=== PATIENT | male | born 1965 | race Caucasian/White ===

== ENCOUNTER 2019-11-05 09:13 | Day surgery (SDC) | payer BC, OTHER ==
[~2019-11-05] VITALS: Ht 174 cm; Wt 60.0 kg
[2019-11-05 09:20] VITALS: BP 125/75
[2019-11-05] MEDS ORDERED: ELIQUIS PO (09:26)
[2019-11-05] MEDS ORDERED: DULO60CA45 PO (09:27)
[2019-11-05] MEDS ORDERED: PREG150C PO (09:27)
[2019-11-05] MEDS ORDERED: CYCL-1 PO (09:28)
[2019-11-05] MEDS ORDERED: ROSU10TA2 PO (09:29)
[2019-11-05] MEDS ORDERED: MOME13HF INH (09:30)
[2019-11-05] MEDS ORDERED: FLO0.4C PO (09:30)
[2019-11-05] MEDS ORDERED: OMEP20TA23 PO (09:31)
[2019-11-05] MEDS ORDERED: CREON PO (09:34)
[2019-11-05] MEDS ORDERED: NORT50CA5 PO (09:35)
[2019-11-05] MEDS ORDERED: APIX5TAB3 PO (09:36)
[2019-11-05] MEDS ORDERED: LIDOcaine Viscous 15ml cup ONE (09:44)
[2019-11-05] MEDS ORDERED: fentaNYL/PF 50MCG/1 ML 2ML syringe ONE (09:44)
[2019-11-05] MEDS ORDERED: MIDAZolam 5mg/5ml vial ONE (09:44)
[2019-11-05 10:51] VITALS: BP 115/69
[2019-11-05 11:01] VITALS: BP 110/68
[2019-11-05 11:16] VITALS: BP 116/67
[2019-11-05 11:21] VITALS: BP 111/69
[2019-11-05 11:31] VITALS: BP 124/69
== END 2019-11-05 12:43 | disposition home or self-care (01) ==
LOC: GI LAB 09:13
PROVIDERS: ATTEND Internal Medicine Gastroenterology
DX: K22.70 Barrett's esophagus without dysplasia (principal); B37.81 Candidal esophagitis; Z79.899 Other long term (current) drug therapy
CPT/HCPCS: 43239; G0500; J2250; J3010; J7040; 88305; 88312; 99152; A4620

== ENCOUNTER 2019-11-18 22:16 | Emergency (ER) | payer MEDICARE, OTHER ==
[~2019-11-18] VITALS: Ht 172.7 cm; Wt 58.2 kg
[~2019-11-18 22:16] MED LIST: APIX5TAB3 PO; CREON PO; CYCL-1 PO; DULO60CA45 PO; FLO0.4C PO; MOME13HF INH; NORT50CA5 PO; OMEP20TA23 PO; PREG150C PO; ROSU10TA2 PO
--- NOTE | 2019-11-18 23:00 | NUR ---
TRAUMA CLEARED BY MIRTA RTISTAN
[2019-11-18] MEDS ORDERED: HYDROcodone/acetaminophen 10/325mg tab PO ONE (23:05)
[2019-11-18 23:42] VITALS: BP 115/85
== END 2019-11-18 23:44 | disposition home or self-care (01) ==
LOC: ER 22:17
DX: S09.90XA Unspecified injury of head, initial encounter (principal); R11.2 Nausea with vomiting, unspecified; M54.5 Low back pain; G89.29 Other chronic pain; F17.200 Nicotine dependence, unspecified, uncomplicated; Z98.890 Other specified postprocedural states; Z79.01 Long term (current) use of anticoagulants; Z79.899 Other long term (current) drug therapy; W18.31XA Fall on same level due to stepping on an object, initial encounter; Y93.89 Activity, other specified; Y92.89 Other specified places as the place of occurrence of the external cause; Y99.8 Other external cause status
CPT/HCPCS: 70450; 99284

== ENCOUNTER 2019-11-20 21:38 | Emergency (ER) | payer MEDICARE, MEDICAID ==
[~2019-11-20] VITALS: Ht 170.2 cm; Wt 56.8 kg
--- NOTE | 2019-11-20 22:04 | NUR ---
SPOKE WITH MIRTA ISSA REGARDING PT TAKING THINNERS. PER LUIS MANUEL, NOT NECESSARY TO START TRAUMA PROTOCOL AND ORDER ELBOW XRAY. ORDERS PLACED
[2019-11-20] MEDS ORDERED: HYDR-3965 PO (22:57)
[2019-11-20] MEDS ORDERED: HYDROcodone/acetaminophen 10/325mg tab PO ONE (23:00)
--- NOTE | 2019-11-20 23:03 | NUR ---
Edward, the orthopaedic nurse, is coming in to place long arm splint
--- NOTE | 2019-11-20 23:35 | NUR ---
orthopedic shoe maker at bedside
[2019-11-20] MEDS ORDERED: fentaNYL/PF 50MCG/1 ML 2ML syringe IV ONE (23:40)
--- NOTE | 2019-11-21 00:15 | NUR ---
Mel Young PA at bedside to check splint,
[2019-11-21 00:32] VITALS: BP 121/60
== END 2019-11-21 00:25 | disposition home or self-care (01) ==
LOC: ER 21:39
DX: S42.402A Unspecified fracture of lower end of left humerus, initial encounter for closed fracture (principal); M25.522 Pain in left elbow; G89.29 Other chronic pain; F10.10 Alcohol abuse, uncomplicated; Z98.890 Other specified postprocedural states; Z79.899 Other long term (current) drug therapy; W18.39XA Other fall on same level, initial encounter; Y93.89 Activity, other specified; Y92.89 Other specified places as the place of occurrence of the external cause; Y99.8 Other external cause status; Y90.9 Presence of alcohol in blood, level not specified
CPT/HCPCS: 73070; 96374; 99284; J3010

== ENCOUNTER 2019-12-15 13:58 | Emergency (ER) | payer MEDICARE, MEDICAID ==
[~2019-12-15] VITALS: Ht 172.7 cm; Wt 125.0 kg
[~2019-12-15 13:58] MED LIST changes: +HYDR-3965 PO
[2019-12-15 14:28] LABS: BASOPHILS # (AUTO) 0.1 X10'3 (0-0.2); BASOPHILS % (AUTO) 0.8 % (0-1); EOSINOPHILS # (AUTO) 0.5 X10'3 (0-0.9); EOSINOPHILS % (AUTO) 3.3 % (0-6); HEMATOCRIT 32.5 % (42.0-52.0); HEMOGLOBIN 10.3 g/dl (14.0-17.9); LYMPHOCYTES # (AUTO) 1.5 X10'3 (1.1-4.8); LYMPHOCYTES % (AUTO) 10.8 % (21-51); MEAN CORPUSCULAR HEMOGLOBIN 23.9 PG (27.0-31.0); MEAN CORPUSCULAR HGB CONC 31.8 g/dL (33.0-36.5); MEAN CORPUSCULAR VOLUME 75.2 FL (78-98); MEAN PLATELET VOLUME 8.4 FL (7.4-10.4); MONOCYTES # (AUTO) 1.1 X10'3 (0-0.9); MONOCYTES % (AUTO) 7.9 % (2-12); NEUTROPHILS # (AUTO) 10.9 X10'3 (1.8-7.7); NEUTROPHILS % (AUTO) 77.2 % (42-75); PLATELET COUNT 443 X10'3 (140-440); RED BLOOD COUNT 4.31 X10'6 (4.70-6.10); RED CELL DISTRIBUTION WIDTH 21.1 % (11.5-14.5); WHITE BLOOD COUNT 14.1 X10'3 (4.5-11.0)
[2019-12-15] MEDS ORDERED: morphine 2 MG/ML inj. syringe IV PRN (14:30)
[2019-12-15] MEDS ORDERED: ondansetron/PF 4mg/2ml inj IV ONE (14:30)
[2019-12-15] MEDS ORDERED: normal saline 1000ML IV soln IVB ONE (14:30)
[2019-12-15] MEDS ORDERED: pantoprazole 40MG/NS 100ML BAG 100 ML IV ONE (14:30)
[2019-12-15 14:40] LABS: ALANINE AMINOTRANSFERASE 15 U/L (12-78); ALBUMIN 2.4 G/DL (3.4-5.0); ALBUMIN/GLOBULIN RATIO 0.5 (1.1-1.5); ALKALINE PHOSPHATASE 292 IU/L (46-116); ANION GAP 19 (8-16); ASPARTATE AMINO TRANSFERASE 18 U/L (10-37); BILIRUBIN,TOTAL 0.5 MG/DL (0.1-1.0); BLOOD UREA NITROGEN 14 MG/DL (7-18); BUN/CREATININE RATIO 10.9 (5.4-32.0); CALCIUM 8.7 MG/DL (8.5-10.1); CHLORIDE 94 MMOL/L (99-107); CREATININE 1.29 MG/DL (0.60-1.10); GLUCOSE 63 MG/DL (70-104); LIPASE < 50 U/L (73-393); SODIUM 134 MMOL/L (135-145); TOTAL CARBON DIOXIDE 21.2 MMOL/L (24-32); TOTAL PROTEIN 7.2 G/DL (6.4-8.2); eGFR 58 ML/MIN
[2019-12-15] MEDS ORDERED: potassium Cl 10 mEq/100mL bag IV SCH ×2 (14:45→15:25)
[2019-12-15 14:47] LABS: CLARITY,URINE SLIGHTLY CLOUDY (Clear); COLOR,URINE YELLOW (Yellow); GLUCOSE, URINE NEGATIVE (Neg); KETONES,URINE 40 mg/dl (Neg); LEUKOCYTE ESTERASE ,URINE NEGATIVE (Neg); NITRITES, URINE NEGATIVE (Neg); OCCULT BLOOD,URINE NEGATIVE (Neg); PROTEIN,URINE TRACE mg/dl (Neg); UA COLLECTION TYPE STRAIGHT CATH
[2019-12-15 14:47] LABS: PARTIAL THROMBOPLASTIN TIME 30 SECONDS (22-32)
[2019-12-15 14:54] LABS: COARSE GRANULAR CAST 0-3 /LPF (NEGATIVE); HYALINE CASTS 0-3 /LPF (NEGATIVE)
[2019-12-15 14:55] LABS: SQUAMOUS EPITHELIAL CELL,UR FEW /LPF (FEW)
[2019-12-15 14:56] LABS: BACTERIA,URINE NONE SEEN /HPF (Neg); MUCUS STRANDS MODERATE /LPF (Neg); RBC,URINE 0-2 /HPF (0-2); RENAL CELLS, URINE MODERATE /HPF; TRANSITIONAL EPI CELLS,URINE FEW /HPF; WBC,URINE 0-4 /HPF (0-4)
[2019-12-15] MEDS ORDERED: dextrose 50%-water 50ml dispensing syringe IV ONE (15:02)
--- NOTE | 2019-12-15 15:05 | NUR ---
Blood sugar on lab draw noted to be 63. Dr. Hyman notified and 1 amp D50 ordered and given.
[2019-12-15] MEDS ORDERED: iohexol 300mg/ml 100ml inj. ONE (15:14)
[2019-12-15 15:24] LABS: PLATELET ESTIMATE INCREASED
[2019-12-15 15:25] LABS: ANISOCYTOSIS 3+; GIANT PLATELET FEW; HYPOCHROMASIA 1+; LARGE PLATELETS FEW; MICROCYTOSIS 1+; POLYCHROMASIA FEW
[2019-12-15] MEDS ORDERED: ONDA8TAB13 PO (17:33)
--- NOTE | 2019-12-15 18:03 | NUR ---
Patient eating and drinking clear liquids without pain or vomiting and he reports feeling better. Spoke to patient's Shayna who states she will return to pick him up and take him home.
[2019-12-15 18:25] VITALS: BP 128/66
== END 2019-12-15 18:26 | disposition home or self-care (01) ==
LOC: ER 13:59
DX: K86.1 Other chronic pancreatitis (principal); J44.9 Chronic obstructive pulmonary disease, unspecified; K21.9 Gastro-esophageal reflux disease without esophagitis; G89.29 Other chronic pain; F17.200 Nicotine dependence, unspecified, uncomplicated; R11.10 Vomiting, unspecified; R19.7 Diarrhea, unspecified; R10.9 Unspecified abdominal pain; Z86.718 Personal history of other venous thrombosis and embolism; Z98.890 Other specified postprocedural states; Z79.01 Long term (current) use of anticoagulants; Z79.899 Other long term (current) drug therapy
CPT/HCPCS: 36415; 74177; 80053; 81001; 82140; 82948; 83690; 85025; 85610; 85730; 96361; 96365; 96375; 99285; C9113; J2270; J2405; J3480; J7030; Q9967

== ENCOUNTER 2023-01-12 22:55 | Emergency (ER) | payer MEDICARE, MEDICAID ==
[~2023-01-12] VITALS: Ht 172.7 cm; Wt 48.9 kg
[~2023-01-12 22:55] MED LIST changes: +AMYL1CAP54 PO; -CREON PO; -CYCL-1 PO; -DULO60CA45 PO; +DULO60CA59 PO; +FLUT1AER INH; -HYDR-3965 PO; -MOME13HF INH; +OXYC1TAB17 PO; -ROSU10TA2 PO
[2023-01-13 01:32] VITALS: BP 144/67; PULSE 72; TEMP 97.6; O2SAT 98
[2023-01-13] MEDS ORDERED: HYDROcodone/acetaminophen 5mg/325mg tablet PO ONE (01:50)
[2023-01-13 02:24] VITALS: RESP 18
== END 2023-01-13 03:36 | disposition left against medical advice (07) ==
LOC: ER 22:56
DX: M25.511 Pain in right shoulder (principal); Z53.21 Procedure and treatment not carried out due to patient leaving prior to being seen by health care provider
CPT/HCPCS: 73030; 99281